=== PATIENT | female | born 1965 | race Caucasian/White ===

== ENCOUNTER 2019-02-13 08:43 | Emergency (ER) | payer OTHER ==
[~2019-02-13] VITALS: Ht 175.3 cm; Wt 70.3 kg
[2019-02-13] MEDS ORDERED: FURO40 (09:01)
[2019-02-13] MEDS ORDERED: SPIR50 PO (09:02)
[2019-02-13 09:23] LABS: BASOPHILS ABSOLUTE AUTO 0.04 K/mm3 (0.00-0.23); BASOPHILS PERCENT AUTO 1 % (0-2); EOSINOPHILS ABSOLUTE AUTO 0.25 K/mm3 (0.00-0.68); EOSINOPHILS PERCENT AUTO 5 % (0-6); Hematocrit 47.6 % (33.0-51.0); Hemoglobin 15.1 g/dL (11.5-16.0); IMMATURE GRAN ABSOLUTE AUTO 0.02 K/mm3 (0.00-0.10); IMMATURE GRAN PERCENT AUTO 0 % (0-1); LYMPHOCYTES ABSOLUTE AUTO 1.45 K/mm3 (0.84-5.20); LYMPHOCYTES PERCENT AUTO 27 % (21-46); MONOCYTES ABSOLUTE AUTO 0.45 K/mm3 (0.16-1.47); MONOCYTES PERCENT AUTO 9 % (4-13); Mean Corpuscular HGB 28.2 pg (26.0-34.0); Mean Corpuscular HGB Conc 31.7 g/dL (31.5-36.5); Mean Corpuscular Volume 89 fL (80-100); NEUTROPHILS PERCENT AUTO 58 % (41-73); Platelet Count 217 K/mm3 (150-400); RDW Coefficient Variation 12.4 % (11.7-14.2); RDW Standard Deviation 41.2 fL (35.1-46.3); Red Blood Cell Count 5.35 M/mm3 (3.80-5.20); White Blood Cell Count 5.31 K/mm3 (4.00-11.30)
[2019-02-13 09:52] LABS: Alanine Aminotransfer (ALT/SGP 23 U/L (12-78); Albumin, Blood 3.4 g/dL (3.4-5.0); Albumin/Globulin Ratio 0.9 (0.8-1.8); Alk Phos 80 U/L (50-136); Anion Gap 6 mmol/L (6-16); Aspartate Aminotrans (AST/SGOT 15 U/L (12-37); Bilirubin, Total 0.4 mg/dL (0.1-1.0); Blood Urea Nitrogen 22 mg/dL (8-24); Bun/Creatinine Ratio 25.7 (12.0-20.0); CO2, Blood 25 mmol/L (21-32); Calcium, Blood 8.8 mg/dL (8.5-10.1); Chloride, Blood 110 mmol/L (98-108); Creatinine, Blood 0.86 mg/dL (0.40-1.00); Globulin, Blood 3.6 g/dL (2.2-4.0); Glomerular Filtration Rate >60 (60-); Glucose, Blood 99 mg/dL (70-99); Potassium, Blood 3.9 mmol/L (3.5-5.5); Sodium, Blood 141 mmol/L (136-145); Troponin I <0.015 ng/mL (0.000-0.040)
[2019-02-13] MEDS ORDERED: LASIX40 MG PO (10:59)
== END 2019-02-13 11:13 | disposition home or self-care (01) ==
LOC: ER 08:43
PROVIDERS: Physician Assistant
DX: R07.9 Chest pain, unspecified (principal); I11.0 Hypertensive heart disease with heart failure; I50.9 Heart failure, unspecified; Z76.0 Encounter for issue of repeat prescription; F17.210 Nicotine dependence, cigarettes, uncomplicated; Z88.8 Allergy status to other drugs, medicaments and biological substances; Z79.899 Other long term (current) drug therapy
CPT/HCPCS: 71046; 80053; 83880; 84484; 85025; 93005; 93010; 99285-25

== ENCOUNTER 2019-03-07 17:07 | Inpatient (IN) | payer OTHER ==
[~2019-03-07] VITALS: Ht 175.3 cm; Wt 70.0 kg
[~2019-03-07 17:07] MED LIST: FURO40; LASIX40 MG PO; SPIR50 PO
[2019-03-07 19:26] LABS: BASOPHILS ABSOLUTE AUTO 0.04 K/mm3 (0.00-0.23); BASOPHILS PERCENT AUTO 0 % (0-2); EOSINOPHILS ABSOLUTE AUTO 0.17 K/mm3 (0.00-0.68); EOSINOPHILS PERCENT AUTO 2 % (0-6); Hematocrit 44.9 % (33.0-51.0); Hemoglobin 14.1 g/dL (11.5-16.0); IMMATURE GRAN ABSOLUTE AUTO 0.06 K/mm3 (0.00-0.10); IMMATURE GRAN PERCENT AUTO 1 % (0-1); LYMPHOCYTES ABSOLUTE AUTO 1.51 K/mm3 (0.84-5.20); LYMPHOCYTES PERCENT AUTO 15 % (21-46); MONOCYTES ABSOLUTE AUTO 0.61 K/mm3 (0.16-1.47); MONOCYTES PERCENT AUTO 6 % (4-13); Mean Corpuscular HGB 27.9 pg (26.0-34.0); Mean Corpuscular HGB Conc 31.4 g/dL (31.5-36.5); Mean Corpuscular Volume 89 fL (80-100); Mean Platelet Volume 10.3 fL (9.1-12.4); NEUTROPHILS ABSOLUTE AUTO 7.48 K/mm3 (1.96-9.15); NEUTROPHILS PERCENT AUTO 76 % (41-73); Platelet Count 245 K/mm3 (150-400); RDW Coefficient Variation 12.4 % (11.7-14.2); RDW Standard Deviation 40.8 fL (35.1-46.3); Red Blood Cell Count 5.06 M/mm3 (3.80-5.20); White Blood Cell Count 9.87 K/mm3 (4.00-11.30)
[2019-03-07 20:00] LABS: Alanine Aminotransfer (ALT/SGP 17 U/L (12-78); Albumin/Globulin Ratio 0.7 (0.8-1.8); Alk Phos 97 U/L (50-136); Anion Gap 3 mmol/L (6-16); Aspartate Aminotrans (AST/SGOT 18 U/L (12-37); Bilirubin, Total 0.5 mg/dL (0.1-1.0); Blood Urea Nitrogen 12 mg/dL (8-24); Bun/Creatinine Ratio 18.5 (12.0-20.0); CO2, Blood 25 mmol/L (21-32); Calcium, Blood 9.1 mg/dL (8.5-10.1); Chloride, Blood 109 mmol/L (98-108); Creatinine, Blood 0.65 mg/dL (0.40-1.00); Globulin, Blood 4.3 g/dL (2.2-4.0); Glomerular Filtration Rate >60 (60-); Glucose, Blood 85 mg/dL (70-99); Potassium, Blood 4.1 mmol/L (3.5-5.5); Sodium, Blood 137 mmol/L (136-145); Total Protein, Blood 7.3 g/dL (6.4-8.2); Troponin I <0.015 ng/mL (0.000-0.040)
[2019-03-07] MEDS ORDERED: LISI5 PO (20:00)
[2019-03-08 05:05] LABS: BASOPHILS ABSOLUTE AUTO 0.04 K/mm3 (0.00-0.23); BASOPHILS PERCENT AUTO 1 % (0-2); EOSINOPHILS PERCENT AUTO 3 % (0-6); Hematocrit 43.7 % (33.0-51.0); Hemoglobin 13.5 g/dL (11.5-16.0); IMMATURE GRAN ABSOLUTE AUTO 0.05 K/mm3 (0.00-0.10); IMMATURE GRAN PERCENT AUTO 1 % (0-1); LYMPHOCYTES ABSOLUTE AUTO 1.56 K/mm3 (0.84-5.20); LYMPHOCYTES PERCENT AUTO 22 % (21-46); MONOCYTES ABSOLUTE AUTO 0.57 K/mm3 (0.16-1.47); MONOCYTES PERCENT AUTO 8 % (4-13); Mean Corpuscular HGB 27.3 pg (26.0-34.0); Mean Corpuscular HGB Conc 30.9 g/dL (31.5-36.5); Mean Corpuscular Volume 88 fL (80-100); Mean Platelet Volume 10.1 fL (9.1-12.4); NEUTROPHILS ABSOLUTE AUTO 4.54 K/mm3 (1.96-9.15); NEUTROPHILS PERCENT AUTO 65 % (41-73); Platelet Count 224 K/mm3 (150-400); RDW Coefficient Variation 12.6 % (11.7-14.2); RDW Standard Deviation 40.8 fL (35.1-46.3); Red Blood Cell Count 4.95 M/mm3 (3.80-5.20); White Blood Cell Count 6.96 K/mm3 (4.00-11.30)
[2019-03-08 05:34] LABS: Anion Gap 4 mmol/L (6-16); Blood Urea Nitrogen 12 mg/dL (8-24); Bun/Creatinine Ratio 15.8 (12.0-20.0); CO2, Blood 29 mmol/L (21-32); Calcium, Blood 8.9 mg/dL (8.5-10.1); Chloride, Blood 107 mmol/L (98-108); Creatinine, Blood 0.76 mg/dL (0.40-1.00); Glomerular Filtration Rate >60 (60-); Glucose, Blood 91 mg/dL (70-99); Potassium, Blood 3.7 mmol/L (3.5-5.5); Sodium, Blood 140 mmol/L (136-145)
[2019-03-08 06:56] LABS: Adenovirus Not Detected (NOT DETECT); Bordetella pertussis Not Detected (NOT DETECT); Chlamydophila pneumoniae Not Detected (NOT DETECT); Coronavirus 229E Not Detected (NOT DETECT); Coronavirus HKU1 Not Detected (NOT DETECT); Coronavirus NL63 Not Detected (NOT DETECT); Coronavirus OC43 Not Detected (NOT DETECT); Human Metapneumovirus Not Detected (NOT DETECT); Human Rhinovirus/Enterovirus Not Detected (NOT DETECT); Influenza A Not Detected (NOT DETECT); Influenza A/2009-H1 Not Detected (NOT DETECT); Influenza A/H1 Not Detected (NOT DETECT); Influenza A/H3 Not Detected (NOT DETECT); Influenza B Not Detected (NOT DETECT); Mycoplasma pneumoniae Not Detected (NOT DETECT); Parainfluenza Virus 1 Not Detected (NOT DETECT); Parainfluenza Virus 2 Not Detected (NOT DETECT); Parainfluenza Virus 3 Not Detected (NOT DETECT); Parainfluenza Virus 4 Not Detected (NOT DETECT); Respiratory Syncytial Virus Not Detected (NOT DETECT)
--- NOTE | 2019-03-08 07:25 | NUR ---
ADMIT NOTE/SHIFT SUMMARY PATIENT ADMITED EARLIER THIS SHIFT AND HAS BEEN PLEASENT AND COOPERATIVE THROUGHOUT THE NIGHT. PATIENT ORIENTED TO THE ROOM, UNIT, AND CALL LIGHT. PATIENT VERY DROWSY BUT AWAKENS EASILY TO VERBAL STIMULI. PATIENT APPEARED TO SLEEP WELL THROUGHOUT THE REST OF THE NIGHT. REPORT GIVEN TO ONCOMING RN.
--- NOTE | 2019-03-08 08:37 | NUR ---
NURSING PCU DAYSHIFT: Assumed care of pt at approx 0700. A/O, pleasant, cooperative w/care. Drowsy though arouses to verbal stimuli. C/O mild SHANKS which increases w/cough. CIWA currently 4. Ambulates w/SBA. Skin is intact w/no breakdown noted. Tele in place, NSR, no c/o CP/pressure, BP stable, no noted edema. 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 Abd SNT, BT+, no c/o N/V, voiding w/o difficulty per pt. PIV x1, s/l. Pt denies any current needs or questions regarding plan of care. Awaiting rounding from PMD. Call light in reach and pt is able to use w/o difficulty, bed alarm set for safety purposes. Cont to monitor for any changes.
--- NOTE | 2019-03-08 10:51 | NUR ---
PATIENT TEARFUL PATIENT ASKED ABOUT ECHO RESULT - PATIENT INFORMED THAT THERE WAS SOME HEART FAILURE NOTED AND THAT PROVIDER WILL BE UPDATING HER WITH RESULTS. PATIENT TEARFUL - PATIENT EDUCATED ON ETOH CESSATION - PATIENT VERBALIZED UNDERSTANDING. PATIENT EDUCATED ON NEW CARDIAC MEDICATIONS IT RELATES TO HER FLUID OVERLOAD AND NEW HEART FAILURE. USED THERAPUTIC COMMUNICATION TO SOOTH PATIENT DURING EDUCATION PROCESS. PATIENT WILL NEED CONTINUED MEDICATION, LIFESTYLE AND CHF MANAGEMENT EDUCATION T/O - PATIENT HAS BED ALARM ON, CALL LIGHT W/I REACH. CIWA 6. WILL CONTINUE TO MONITOR.
--- NOTE | 2019-03-08 10:52 | NUR ---
echocardiogram completed
--- NOTE | 2019-03-08 12:58 | NUR ---
Patient is lying in bed and alert. Patient immediately shares about her medical issues, her addiction to alcohol, her support system and her need for help. Patient asks me to pray for her, which I gladly do. Patient falls asleep while I am praying. I listen empathically, normalize patient's experience and provide pastoral beauty counselor and prayer. Patient responds well and asks if I could return when she is more "with it." I will continue to remain available to patient and family.
--- NOTE | 2019-03-08 14:50 | NUR ---
PATIENT GAVE STUDENT NURSE PERMISSION TO PROVIDE CARE ON 03/08/2019.
--- NOTE | 2019-03-08 14:56 | NUR ---
PCU DAYSHIFT SUMMARY PATIENT REMAINS ALERT AND ORIENTED X4. CIWA 4-6. PATIENT DENIES ANY PAIN AT THIS TIME. PATIENT IS REGRETFUL OF LIFT CHOICE - PATIENT EDUCATED THAT SHE IS IN THE RIGHT PLACE AND LIFESTYLE CHANGES CAN BE MADE TO MANAGE HR. RESP E/U ON 2 LPM NC. CONTINUOUS BIOX IN PLACE. 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 NO SKIN COMPLIANTS. PATIENT STAND BY ASSIST TO BATHROOM. BED ALARM ON BUT PATIENT CALLS APPROPRIATLY AT THIS TIME.
--- NOTE | 2019-03-08 18:40 | NUR ---
NURSING PCU DAYSHIFT SUMMARY: No significant changes noted since assuming care at 1500. Current CIWA 10 w/nausea noted t/o the afternoon. Pt remains A/O, very pleasant and cooperative w/care. No s/s of acute distress, cont to monitor until rpt is given to NOC RN
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
[2019-03-09 04:00] LABS: BASOPHILS ABSOLUTE AUTO 0.06 K/mm3 (0.00-0.23); BASOPHILS PERCENT AUTO 1 % (0-2); EOSINOPHILS ABSOLUTE AUTO 0.18 K/mm3 (0.00-0.68); EOSINOPHILS PERCENT AUTO 2 % (0-6); Hemoglobin 14.2 g/dL (11.5-16.0); IMMATURE GRAN ABSOLUTE AUTO 0.08 K/mm3 (0.00-0.10); IMMATURE GRAN PERCENT AUTO 1 % (0-1); LYMPHOCYTES PERCENT AUTO 20 % (21-46); MONOCYTES ABSOLUTE AUTO 0.59 K/mm3 (0.16-1.47); MONOCYTES PERCENT AUTO 7 % (4-13); Mean Corpuscular HGB 27.3 pg (26.0-34.0); Mean Corpuscular HGB Conc 30.9 g/dL (31.5-36.5); Mean Corpuscular Volume 89 fL (80-100); Mean Platelet Volume 9.6 fL (9.1-12.4); NEUTROPHILS ABSOLUTE AUTO 5.83 K/mm3 (1.96-9.15); NEUTROPHILS PERCENT AUTO 69 % (41-73); Platelet Count 238 K/mm3 (150-400); RDW Coefficient Variation 12.7 % (11.7-14.2); RDW Standard Deviation 41.1 fL (35.1-46.3); White Blood Cell Count 8.44 K/mm3 (4.00-11.30)
[2019-03-09 04:15] LABS: Anion Gap 5 mmol/L (6-16); Blood Urea Nitrogen 24 mg/dL (8-24); Bun/Creatinine Ratio 27.2 (12.0-20.0); CO2, Blood 28 mmol/L (21-32); Calcium, Blood 9.2 mg/dL (8.5-10.1); Chloride, Blood 104 mmol/L (98-108); Creatinine, Blood 0.88 mg/dL (0.40-1.00); Glomerular Filtration Rate >60 (60-); Glucose, Blood 93 mg/dL (70-99); Potassium, Blood 3.9 mmol/L (3.5-5.5); Sodium, Blood 137 mmol/L (136-145)
--- NOTE | 2019-03-09 08:00 | NUR ---
ASSUMED CARE PT ALERT AND ORIENTED TO SELF, SITUATION, AND FOLLOWING DIRECTIONS. PT CONFUSED ON PLACE, BUT REORIENTED EASILY. VS STABLE. HR NSR. O2 SATS REMAIN ABOVE 90% ON 2L NC. PT DENIES ANY PAIN. CIWA OF 1. WILL CONTINUE TO MONITOR CLOSELY.
--- NOTE | 2019-03-09 08:03 | NUR ---
SHIFT SUMMARY PATIENT CONTINUED TO SHOW NO SIGNS OF ETOH WITHDRAWAL AT 4-HR VITALS CHECKS. ALL VSS T/O SHIFT. PT C/O ONLY A COUGH WHICH PRODUCED A SMALL HEADACHE, PER PT REPORT, WHILE SHE WAS COUGHING. ORDER FOR COUGH MEDICINE OBTAINED, AND PATIENT MEDICATED PER EMAR. PATIENT OBSERVED TRANSFERRING FROM BED, AMBULATING TO BATHROOM WITH NO ISSUES OF SAFETY. PASSED CARE AND REPORT TO ONCOMING SHIFT AT 0700, PATIENT ASLEEP IN BED, CALL LIGHT IN REACH
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
--- NOTE | 2019-03-09 17:25 | NUR ---
SHIFT SUMMARY PT ALERT AND ORIENTED. VS STABLE. O2 SATS REMAIN ABOVE 90% ON RA. BP STABLE. PT DENIES ANY PAIN. PT SHOWS NO SIGNS OF ALCOHOL WITHDRAWAL AT THIS TIME. PT ABLE TO AMBULATE TO BATHROOM INDEPENDENTLY. PT SITTING UP EATING DINNER. WILL CONTINUE TO MONITOR AND REPORT TO ONCOMING RN. CALL LIGHT IN REACH.
--- NOTE | 2019-03-09 20:28 | NUR ---
ASSUMED CARE PATIENT IS AWAKE AND ALERT LYING IN BED IN NO SIGNS OF DISTRESS. ALL VSS AND WNL. PATIENT DENIES PAIN, DENIES DISCOMFORT. CIWA SCORE OF 3. O2 SATURATION ON ROOM AIR IS 95%. NO NEEDS. WILL CONTINUE TO MONITOR AND PROVIDE CARE. CALL LIGHT IN REACH. PATIENT INDEPENDENT IN ROOM
[2019-03-10 03:52] LABS: BASOPHILS ABSOLUTE AUTO 0.04 K/mm3 (0.00-0.23); BASOPHILS PERCENT AUTO 1 % (0-2); EOSINOPHILS ABSOLUTE AUTO 0.27 K/mm3 (0.00-0.68); EOSINOPHILS PERCENT AUTO 4 % (0-6); Hematocrit 43.4 % (33.0-51.0); IMMATURE GRAN ABSOLUTE AUTO 0.08 K/mm3 (0.00-0.10); IMMATURE GRAN PERCENT AUTO 1 % (0-1); LYMPHOCYTES ABSOLUTE AUTO 1.93 K/mm3 (0.84-5.20); LYMPHOCYTES PERCENT AUTO 26 % (21-46); MONOCYTES ABSOLUTE AUTO 0.62 K/mm3 (0.16-1.47); MONOCYTES PERCENT AUTO 8 % (4-13); Mean Corpuscular HGB 27.9 pg (26.0-34.0); Mean Corpuscular HGB Conc 32.3 g/dL (31.5-36.5); Mean Corpuscular Volume 87 fL (80-100); Mean Platelet Volume 9.7 fL (9.1-12.4); NEUTROPHILS ABSOLUTE AUTO 4.58 K/mm3 (1.96-9.15); NEUTROPHILS PERCENT AUTO 61 % (41-73); Platelet Count 270 K/mm3 (150-400); RDW Coefficient Variation 12.6 % (11.7-14.2); RDW Standard Deviation 39.8 fL (35.1-46.3); Red Blood Cell Count 5.02 M/mm3 (3.80-5.20); White Blood Cell Count 7.52 K/mm3 (4.00-11.30)
[2019-03-10 04:10] LABS: Anion Gap 4 mmol/L (6-16); Blood Urea Nitrogen 23 mg/dL (8-24); Bun/Creatinine Ratio 32.3 (12.0-20.0); CO2, Blood 28 mmol/L (21-32); Chloride, Blood 105 mmol/L (98-108); Creatinine, Blood 0.71 mg/dL (0.40-1.00); Glomerular Filtration Rate >60 (60-); Glucose, Blood 90 mg/dL (70-99); Potassium, Blood 4.2 mmol/L (3.5-5.5); Sodium, Blood 137 mmol/L (136-145)
--- NOTE | 2019-03-10 07:39 | NUR ---
REPORT FROM GRACE DAVIDSON. PATIENT IS SLEEPING. CONTACT ISOLATION INITIATED FOR + CULTURE FOR MRSA IN NARES
--- NOTE | 2019-03-10 07:53 | NUR ---
SHIFT SUMMARY PATIENT WAS MEDICATED PRN ONCE FOR HEADACHE, ONCE FOR COUGH, BOTH WITH RETURN TO COMFORT REPORTED BY PATIENT. OTHERWISE UNEVENTFUL, PATIENT TOILETED SELF AND SLEPT THROUGHOUT THE SHIFT. ALL VSS STABLE AND WNL. O2 SATURATION ABOVE 92% T/O. GAVE CARE AND REPORT TO ONCOMING SHIFT, PATIENT ASLEEP IN BED, CALL LIGHT IN REACH
--- NOTE | 2019-03-10 10:19 | NUR ---
CIWA 0. POSITIVE ATTITUDE. GOOD SUPPORT SYSTEM. PLANS TO QUIT SMOKING AND TO QUIT DRINKING.
--- NOTE | 2019-03-10 10:48 | NUR ---
MD VISIT DR. ESTRADA IN.
--- NOTE | 2019-03-10 11:04 | NUR ---
MD VISIT DR. ESTRADA IN. PLAN FOR DISCHARGE
[2019-03-10] MEDS ORDERED: CARV6.25 PO (11:42)
[2019-03-10] MEDS ORDERED: FURO20 PO (11:42)
[2019-03-10] MEDS ORDERED: Mupirocin22 GM (11:49)
--- NOTE | 2019-03-10 14:31 | NUR ---
DISCHARGE INSTRUCTIONS GIVEN AND ACKNOWLEDGED. SUSANNA RT SET UP HIGH RISK READMISSION FOR PATIENT-
--- NOTE | 2019-03-10 14:50 | NUR ---
OUT THE DOOR IN WHEECHAIR WITH COMPTROLLER AT 1447. RONEL TAXI ORDERED.
== END 2019-03-10 14:58 | disposition home or self-care (01) | DRG 291 ==
LOC: ER 17:07 → PCU 22:28 → ERHOLD 22:28 → PCU 03-08 04:01
PROVIDERS: Internal Medicine; Nurse Practitioner Acute Care; Physician Assistant; ADMIT Family Medicine
DX: I11.0 Hypertensive heart disease with heart failure (principal); I50.21 Acute systolic (congestive) heart failure; F10.239 Alcohol dependence with withdrawal, unspecified; I42.6 Alcoholic cardiomyopathy; F17.210 Nicotine dependence, cigarettes, uncomplicated; Z85.3 Personal history of malignant neoplasm of breast
CPT/HCPCS: 0099U; 36415; 71046; 80048; 80053; 83605; 83735; 83880; 84484; 85025; 87081; 90670; 90686; 93005; 93010; 93306; 94640; 94760; 94762; 96372-59; 96374; 96375; 99285-25; C9113; G0008; G0009; J1650; J1940; J2060; J2405